=== PATIENT | male | born 1960 | race Caucasian/White ===

== ENCOUNTER 2017-05-05 09:48 | Emergency (ER) | payer MEDICARE, MEDICAID ==
[2017-05-05 10:08] LABS: ABG PH 7.2 (7.35-7.45)
[2017-05-05] MEDS ORDERED: FUROSEMIDE 100 MG SOL ONE (10:10)
[2017-05-05 10:13] VITALS: TEMP 97.1
[2017-05-05] MEDS ORDERED: HYDRALAZINE HYDROCHLORIDE 20 MG/ML SOL IV ONE (10:14)
[2017-05-05] MEDS ORDERED: MORPHINE SULFATE 10 MG/ML SOL IV ONE (10:14)
[2017-05-05] MEDS ORDERED: MORPHINE SULFATE 10 MG/ML SOL ONE (10:15)
[2017-05-05] MEDS ORDERED: HYDRALAZINE HYDROCHLORIDE 20 MG/ML SOL ONE (10:15)
[2017-05-05 10:20] LABS: BASOPHILS % (AUTO) 1 % (0-3); EOSINOPHILS % (AUTO) 2 % (0-9); HEMATOCRIT 49 % (39-53); MONOCYTES % (AUTO) 13.4 % (0-12); NEUTROPHILS % (AUTO) 57.2 % (37-80)
[2017-05-05] MEDS ORDERED: FUROSEMIDE 100 MG SOL IV ONE (10:21)
[2017-05-05 10:22] LABS: MEAN CORPUSCULAR VOLUME 103 fL (80-100)
[2017-05-05] MEDS ORDERED: ETOMIDATE 2 MG/ML SOL IV ONE (10:23)
[2017-05-05] MEDS ORDERED: SUCCINYLCHOLINE CHLORIDE 20 MG/ML SOL IV ONE (10:23)
[2017-05-05] MEDS ORDERED: ROCURONIUM BROMIDE 10 MG/ML SOL IV ONE (10:24)
[2017-05-05 10:31] LABS: CALCIUM 8.7 mg/dl (8.5-10.1); POTASSIUM 4.2 mMol/L (3.5-5.1)
[2017-05-05 10:32] LABS: ALBUMIN 2.8 gm/dl (3.4-5.0)
[2017-05-05 10:37] LABS: ABG PH 7.3 (7.35-7.45)
[2017-05-05 10:43] VITALS: RESP 24
[2017-05-05 11:50] VITALS: BP 110/46; PULSE 88; O2SAT 89
== END 2017-05-05 11:44 | disposition short-term general hospital (02) | DRG 291 ==
LOC: ED 09:48
DX: I50.9 Heart failure, unspecified (principal); J96.90 Respiratory failure, unspecified, unspecified whether with hypoxia or hypercapnia; E87.2 Acidosis; J44.9 Chronic obstructive pulmonary disease, unspecified
CPT/HCPCS: 36600; 71010; 80053; 82803; 83880; 84484; 85025; 93005; 99291; J0330; J0360; J1940; J2270

== ENCOUNTER 2017-06-11 02:30 | Inpatient (IN) | payer MEDICARE ==
[2017-06-11] MEDS ORDERED: ALBUTEROL/IPRATROPIUM 1 VIAL SOL INH ONE (02:31)
[2017-06-11] MEDS: SODIUM CHLORIDE 0.9% FLUSH 10 ML SOL IV PRN ×3 (02:45→19:15)
[2017-06-11 02:56] LABS: BASOPHILS % (AUTO) 1 % (0-3); EOSINOPHILS % (AUTO) 2 % (0-9); HEMATOCRIT 43 % (33-40); MEAN CORPUSCULAR VOLUME 97 fL (74-89); MONOCYTES % (AUTO) 10.5 % (0-12)
[2017-06-11] MEDS ORDERED: ALBUTEROL/IPRATROPIUM 1 VIAL SOL ONE (03:12)
[2017-06-11 03:23] LABS: ALBUMIN 2.7 gm/dl (3.4-5.0); ALT 25 IU/L (14-63); CALCIUM 8.6 mg/dl (8.5-10.1); GLOM FILT RATE 78 mL/min (>60); POTASSIUM 3.1 mMol/L (3.5-5.1); SODIUM 138 mMol/L (136-145)
[2017-06-11] MEDS ORDERED: ALBUTEROL/IPRATROPIUM 1 VIAL SOL INH PRN (04:44)
[2017-06-11] MEDS ORDERED: CEFTRIAXONE 1 GM PDS ONE (04:55)
[2017-06-11] MEDS: CEFTRIAXONE 1 GM PDS 1 GM in SODIUM CHLORIDE 0.9% 100 ML 100 ML IV SCH (05:00)
[2017-06-11] MEDS ORDERED: AZITHROMYCIN 500 MG PDS 500 MG in SODIUM CHLORIDE 0.9% 500 ML 500 ML IV SCH ×2 (07:00→09:00)
[2017-06-11] MEDS ORDERED: SODIUM CHLORIDE 0.9% 500 ML 500 ML IV ONE (08:32)
[2017-06-11] MEDS ORDERED: AZITHROMYCIN 500 MG PDS IV ONE (08:32)
[2017-06-11] MEDS ORDERED: CEFTRIAXONE 1 GM PDS 1 GM in SODIUM CHLORIDE 0.9% 100 ML 100 ML IV SCH (09:00)
[2017-06-11] MEDS ORDERED: POTASSIUM CHLORIDE 10 MEQ TER PO SCH (09:00)
[2017-06-11] MEDS ORDERED: OMEPRAZOLE 20 MG CAPSULE PO SCH (09:00)
[2017-06-11] MEDS: NOVOLOG FLEXPEN SC SCH ×4 (09:04→20:35)
[2017-06-11] MEDS: ENOXAPARIN 40 MG SOL SC SCH (09:08)
[2017-06-11] MEDS: SERTRALINE HYDROCHLORIDE 50 MG TAB PO SCH (09:09)
[2017-06-11] MEDS: POTASSIUM CHLORIDE 10 MEQ TER PO SCH (09:09)
[2017-06-11] MEDS: METFORMIN HYDROCHLORIDE 500 MG TAB PO SCH ×2 (09:09→20:34)
[2017-06-11] MEDS: ASPIRIN EC 81 MG PO SCH (09:09)
[2017-06-11] MEDS: PANTOPRAZOLE SODIUM 40 MG ECT PO SCH (09:09)
[2017-06-11] MEDS: FUROSEMIDE 100 MG SOL IV SCH ×2 (09:10→15:46)
[2017-06-11] MEDS ORDERED: ACETAMINOPHEN 325 MG PO PRN (14:01)
[2017-06-11 15:26] LABS: APPEARANCE,URINE Clear; BILIRUBIN,URINE NEGATIVE (NEGATIVE); COLOR,URINE Yellow; GLUCOSE, URINE (UA) NEGATIVE (NEGATIVE); KETONES,URINE NEGATIVE (NEGATIVE); LEUKOCYTE ESTERASE ,URINE NEGATIVE (NEGATIVE); NITRATE,URINE NEGATIVE (NEGATIVE); OCCULT BLOOD,URINE NEGATIVE (NEG-TRACE); PH,URINE 5.5; UROBILINOGEN,URINE 0.2 (0.2-1.0 EU)
[2017-06-11 15:32] LABS: RBC,URINE NEG (0-3AV/HPF); WBC,URINE NEG (0-5AV/HPF)
[2017-06-11] MEDS ORDERED: ACETAMINOPHEN 500 MG 500 MG TAB ONE (19:47)
[2017-06-11] MEDS: SODIUM CHLORIDE 0.9% FLUSH 10 ML SOL IV SCH ×3 (19:49→19:59)
[2017-06-11] MEDS: ACETAMINOPHEN 500 MG 500 MG TAB PO PRN (20:35)
[2017-06-12] MEDS: ACETAMINOPHEN 500 MG 500 MG TAB PO PRN (03:14)
[2017-06-12] MEDS ORDERED: CEFTRIAXONE 1 GM PDS ONE (05:39)
[2017-06-12] MEDS ORDERED: SODIUM CHLORIDE 0.9% 100 ML 100 ML IV ONE (05:40)
[2017-06-12] MEDS: CEFTRIAXONE 1 GM PDS 1 GM in SODIUM CHLORIDE 0.9% 100 ML 100 ML IV SCH (05:45)
[2017-06-12] MEDS: SODIUM CHLORIDE 0.9% FLUSH 10 ML SOL IV SCH ×2 (05:45→12:45)
[2017-06-12] MEDS: NOVOLOG FLEXPEN SC SCH ×2 (06:49→14:43)
[2017-06-12 08:56] LABS: ABG PH 7.26 (7.35-7.45)
[2017-06-12] MEDS ORDERED: AZITHROMYCIN 250 MG TAB PO SCH (09:00)
[2017-06-12] MEDS ORDERED: FUROSEMIDE 40 MG TAB PO SCH (09:00)
[2017-06-12] MEDS ORDERED: [UNRECOGNIZED DRUG - OTHER] PO SCH (09:00)
[2017-06-12 10:52] LABS: ABG PH 7.3 (7.35-7.45)
[2017-06-12 11:17] VITALS: RESP 20
[2017-06-12] MEDS: POTASSIUM CHLORIDE 10 MEQ TER PO SCH (11:56)
[2017-06-12] MEDS: ASPIRIN EC 81 MG PO SCH (11:56)
[2017-06-12] MEDS: FUROSEMIDE 80 MG TAB PO SCH ×2 (11:57→14:43)
[2017-06-12] MEDS: PANTOPRAZOLE SODIUM 40 MG ECT PO SCH (11:57)
[2017-06-12] MEDS: METFORMIN HYDROCHLORIDE 500 MG TAB PO SCH (11:57)
[2017-06-12] MEDS: SERTRALINE HYDROCHLORIDE 50 MG TAB PO SCH (11:58)
[2017-06-12] MEDS ORDERED: SUCCINYLCHOLINE CHLORIDE 20 MG/ML SOL IV ONE (12:36)
[2017-06-12] MEDS ORDERED: ETOMIDATE 2 MG/ML SOL IV ONE (12:36)
[2017-06-12] MEDS ORDERED: MIDAZOLAM 2 MG/2 ML SOL ONE (12:37)
[2017-06-12] MEDS ORDERED: PROPOFOL 10 MG/ML EMU IV ONE (12:38)
[2017-06-12] MEDS ORDERED: ROCURONIUM BROMIDE 10 MG/ML SOL IV ONE (12:43)
[2017-06-12 13:45] VITALS: TEMP 98
[2017-06-12 14:14] VITALS: BP 123/34; PULSE 55; O2SAT 96
[2017-06-12] MEDS: ALBUTEROL/IPRATROPIUM 1 VIAL SOL INH SCH ×2 (14:42→14:43)
[2017-06-12] MEDS: ENOXAPARIN 40 MG SOL SC SCH (14:43)
== END 2017-06-12 13:20 | disposition short-term general hospital (02) | DRG 193 ==
LOC: ED 02:30 → ACUTE CARE 04:39 → MERGE 04:39
PROVIDERS: ADMIT Family Medicine; ATTEND Family Medicine
PROC: 5A09357 Assistance with Respiratory Ventilation, Less than 24 Consecutive Hours, Continuous Positive Airway Pressure (ICD-10-PCS; principal; 2017-06-12)
DX: J18.1 Lobar pneumonia, unspecified organism (principal); I50.9 Heart failure, unspecified; I50.33 Acute on chronic diastolic (congestive) heart failure; Z99.81 Dependence on supplemental oxygen; E87.2 Acidosis; E11.9 Type 2 diabetes mellitus without complications; Z79.84 Long term (current) use of oral hypoglycemic drugs
CPT/HCPCS: 36415; 36600; 71010; 71275; 80053; 81001; 82803; 82962; 83880; 84484; 85025; 85378; 87040; 93005; 94150; 94660; 94760; 99223; 99285; J0330; J0456; J0696; J1650; J1940; J2250; J7620; Q9967; A6232; J1815; J2704

== ENCOUNTER 2018-01-05 08:57 | Emergency (ER) | payer MEDICARE, MEDICAID ==
[2018-01-05] MEDS ORDERED: ASPIRIN 325 MG TAB PO ONE (09:00)
[2018-01-05] MEDS ORDERED: SODIUM CHLORIDE 0.9% FLUSH 10 ML SOL IV PRN (09:05)
[2018-01-05] MEDS ORDERED: NITROGLYCERIN 0.4 MG TAB SL PRN (09:05)
[2018-01-05] MEDS ORDERED: SODIUM CHLORIDE 0.9% 1000ML 1,000 ML IV SCH (09:15)
[2018-01-05 09:17] LABS: ABG PH 7.3 (7.35-7.45)
[2018-01-05 09:28] LABS: BASOPHILS % (AUTO) 1 % (0-3); EOSINOPHILS % (AUTO) 1 % (0-9); HEMATOCRIT 45 % (39-53); HEMOGLOBIN 14.3 gm/dl (13.5-17.7); LYMPHOCYTES % (AUTO) 14.4 % (10-50); MEAN CORPUSCULAR HEMOGLOBIN 31.7 pg (27.0-32.0); MEAN CORPUSCULAR HGB CONC 31.6 gm/dl (32.0-36.0); MONOCYTES % (AUTO) 11.6 % (0-12); NEUTROPHILS % (AUTO) 72.7 % (37-80)
[2018-01-05 09:29] LABS: MEAN CORPUSCULAR VOLUME 100 fL (80-100)
[2018-01-05] MEDS ORDERED: FUROSEMIDE 40 MG SOL IV ONE (09:32)
[2018-01-05] MEDS ORDERED: FUROSEMIDE 40 MG SOL ONE (09:33)
[2018-01-05 09:37] LABS: INR 1.03 (0.86-1.12)
[2018-01-05 09:46] LABS: ALBUMIN 2.6 gm/dl (3.4-5.0); ALKALINE PHOSPHATASE 72 IU/L (46-116); ALT 22 IU/L (14-63); AST 16 IU/L (15-37); BILIRUBIN,TOTAL 0.8 mg/dl (0.2-1.0); BLOOD UREA NITROGEN 14 mg/dl (7-18); CALCIUM 7.9 mg/dl (8.5-10.1); CARBON DIOXIDE 40.8 mEq/L (21-32); CHLORIDE 96 mMol/L (98-107); CREATINE KINASE 46 U/L (39-308); CREATININE 1.14 mg/dl (0.80-1.30); GLOM FILT RATE 67 mL/min (>60); GLUCOSE 277 mg/dl (74-106); POTASSIUM 3.9 mMol/L (3.5-5.1); SODIUM 139 mMol/L (136-145); TOTAL PROTEIN 7.9 gm/dl (6.4-8.2); TROP I < 0.017 ng/ml (0.000-0.056)
[2018-01-05 09:47] LABS: APPEARANCE,URINE Clear; BILIRUBIN,URINE NEGATIVE (NEGATIVE); COLOR,URINE Yellow; GLUCOSE, URINE (UA) NEGATIVE (NEGATIVE); KETONES,URINE NEGATIVE (NEGATIVE); LEUKOCYTE ESTERASE ,URINE NEGATIVE (NEGATIVE); NITRATE,URINE NEGATIVE (NEGATIVE); OCCULT BLOOD,URINE NEGATIVE (NEG-TRACE)
[2018-01-05 10:01] LABS: BACTERIA TRACE (< 1+); CRYSTALS NEGATIVE (0-3 AVE/HPF); EPITHELIAL CELLS 0-2 (SQUAMOUS); RBC,URINE 0-1 (0-3AV/HPF); WBC,URINE 0-1 (0-5AV/HPF)
[2018-01-05] MEDS ORDERED: ALBUTEROL/IPRATROPIUM 1 VIAL SOL INH ONE (10:04)
[2018-01-05 10:17] LABS: ABG PH 7.33 (7.35-7.45)
[2018-01-05] MEDS ORDERED: ALBUTEROL/IPRATROPIUM 1 VIAL SOL ONE (10:17)
[2018-01-05 10:22] VITALS: BP 143/74; PULSE 66; RESP 23; TEMP 98.3; O2SAT 89
[2018-01-05] MEDS ORDERED: HEPARIN SODIUM 5000 U/ML SOL IV ONE (10:52)
[2018-01-05] MEDS ORDERED: HEPARIN SODIUM 5000 U/ML SOL ONE (10:52)
== END 2018-01-05 10:56 | disposition short-term general hospital (02) | DRG 204 ==
LOC: ED 08:57
DX: R06.00 Dyspnea, unspecified (principal); E11.8 Type 2 diabetes mellitus with unspecified complications; E87.2 Acidosis; J44.1 Chronic obstructive pulmonary disease with (acute) exacerbation; I50.9 Heart failure, unspecified; J98.4 Other disorders of lung; R06.02 Shortness of breath
CPT/HCPCS: 36415; 36600; 71045; 74018; 80053; 81001; 82550; 82803; 83880; 84484; 85025; 85378; 85610; 85730; 93005; 96365; 96374; 96375; 99291; 99292; J1644; J1940

== ENCOUNTER 2018-01-21 21:56 | Emergency (ER) | payer MEDICARE, MEDICAID ==
[2018-01-21 23:31] LABS: BASOPHILS % (AUTO) 1 % (0-3); EOSINOPHILS % (AUTO) 2 % (0-9); HEMATOCRIT 47 % (39-53); HEMOGLOBIN 15.1 gm/dl (13.5-17.7); LYMPHOCYTES % (AUTO) 25.9 % (10-50); MEAN CORPUSCULAR HEMOGLOBIN 31.3 pg (27.0-32.0); MEAN CORPUSCULAR HGB CONC 32.5 gm/dl (32.0-36.0); MEAN CORPUSCULAR VOLUME 96 fL (80-100); MONOCYTES % (AUTO) 12.5 % (0-12); NEUTROPHILS % (AUTO) 58.6 % (37-80)
[2018-01-21 23:33] LABS: APPEARANCE,URINE Clear; BILIRUBIN,URINE NEGATIVE (NEGATIVE); COLOR,URINE Yellow; GLUCOSE, URINE (UA) NEGATIVE (NEGATIVE); KETONES,URINE NEGATIVE (NEGATIVE); LEUKOCYTE ESTERASE ,URINE NEGATIVE (NEGATIVE); NITRATE,URINE NEGATIVE (NEGATIVE); OCCULT BLOOD,URINE 2+ (NEG-TRACE); UROBILINOGEN,URINE 0.2 (0.2-1.0 EU)
[2018-01-21 23:39] LABS: CALCIUM 8.7 mg/dl (8.5-10.1); CARBON DIOXIDE 40.6 mEq/L (21-32); CREATININE 1.16 mg/dl (0.80-1.30); POTASSIUM 3.9 mMol/L (3.5-5.1)
[2018-01-21 23:56] LABS: BACTERIA NEGATIVE (< 1+); CRYSTALS NEGATIVE (0-3 AVE/HPF); EPITHELIAL CELLS 0-1 (SQUAMOUS); RBC,URINE 20-25 (0-3AV/HPF); WBC,URINE NEG (0-5AV/HPF)
[2018-01-21] MEDS ORDERED: FUROSEMIDE 40 MG SOL IV ONE (23:56)
[2018-01-21] MEDS ORDERED: FUROSEMIDE 40 MG SOL ONE (23:59)
[2018-01-22 00:28] VITALS: TEMP 97.6
[2018-01-22 01:44] VITALS: BP 130/71; PULSE 62; RESP 20; O2SAT 94
== END 2018-01-22 02:05 | disposition home health service (06) | DRG 696 ==
LOC: ED 21:56
DX: R33.9 Retention of urine, unspecified (principal)
CPT/HCPCS: 80048; 81001; 85025; 96374; 99283; 99285; J1940

== ENCOUNTER 2018-03-01 09:52 | Emergency (ER) | payer MEDICARE, MEDICAID ==
[2018-03-01 10:05] LABS: ABG PH 7.38 (7.35-7.45)
[2018-03-01 10:07] LABS: HEMATOCRIT 50 % (39-53); HEMOGLOBIN 15.1 gm/dl (13.5-17.7); MEAN CORPUSCULAR HEMOGLOBIN 28.9 pg (27.0-32.0); MEAN CORPUSCULAR HGB CONC 30.4 gm/dl (32.0-36.0); MEAN CORPUSCULAR VOLUME 95 fL (80-100)
[2018-03-01] MEDS ORDERED: HYDRALAZINE HYDROCHLORIDE 20 MG/ML SOL IV PRN (10:10)
[2018-03-01] MEDS ORDERED: MORPHINE SULFATE 10 MG/ML SOL IV ONE (10:10)
[2018-03-01] MEDS ORDERED: FUROSEMIDE 100 MG SOL IV ONE (10:10)
[2018-03-01] MEDS ORDERED: FUROSEMIDE 40 MG SOL ONE (10:14)
[2018-03-01] MEDS ORDERED: MORPHINE SULFATE 10 MG/ML SOL ONE (10:14)
[2018-03-01] MEDS ORDERED: HYDRALAZINE HYDROCHLORIDE 20 MG/ML SOL ONE (10:14)
[2018-03-01 10:25] LABS: BLOOD UREA NITROGEN 12 mg/dl (7-18); CALCIUM 8.5 mg/dl (8.5-10.1); CHLORIDE 99 mMol/L (98-107); CREATININE 1.01 mg/dl (0.80-1.30); GLOM FILT RATE 77 mL/min (>60); GLUCOSE 153 mg/dl (74-106); POTASSIUM 3.7 mMol/L (3.5-5.1); SODIUM 137 mMol/L (136-145); TROP I < 0.017 ng/ml (0.000-0.056)
[2018-03-01] MEDS ORDERED: METOLAZONE 2.5 MG TABLET ONE (10:26)
[2018-03-01 10:28] VITALS: TEMP 99
[2018-03-01 11:02] LABS: BAND NEUTROPHILS % (MANUAL) 2 %; LYMPHOCYTES % (MANUAL) 21 % (10-50); MONOCYTES % (MANUAL) 11 % (0-12); NEUTROPHILS % (MANUAL) 60 % (37-80)
[2018-03-01 11:03] LABS: BASOPHILS % (MANUAL) 0 % (0-3); EOSINOPHILS % (MANUAL) 6 % (0-9); NORMAL RBCS PRESENT
[2018-03-01 13:02] VITALS: O2SAT 96
[2018-03-01 13:03] VITALS: BP 169/72; PULSE 76; RESP 24
[2018-03-02] MEDS ORDERED: METOLAZONE 2.5 MG TAB PO SCH (07:00)
== END 2018-03-01 11:50 | disposition short-term general hospital (02) | DRG 292 ==
LOC: ED 09:52
DX: I50.9 Heart failure, unspecified (principal); J81.1 Chronic pulmonary edema
CPT/HCPCS: 36600; 71045; 80048; 82803; 83880; 84484; 85007; 85027; 96374; 96375; 99291; J0360; J1940; J2270; A9270-GY

== ENCOUNTER 2018-03-15 15:30 | Emergency (ER) | payer MEDICARE, MEDICAID ==
[2018-03-15 16:01] LABS: BASOPHILS % (AUTO) 1 % (0-3); EOSINOPHILS % (AUTO) 2 % (0-9); HEMATOCRIT 51 % (39-53); HEMOGLOBIN 15.5 gm/dl (13.5-17.7); LYMPHOCYTES % (AUTO) 22.48 % (10-50); MEAN CORPUSCULAR HEMOGLOBIN 28.8 pg (27.0-32.0); MEAN CORPUSCULAR HGB CONC 30.4 gm/dl (32.0-36.0); MEAN CORPUSCULAR VOLUME 95 fL (80-100); MONOCYTES % (AUTO) 10.6 % (0-12); NEUTROPHILS % (AUTO) 63.5 % (37-80)
[2018-03-15 16:15] LABS: LACTIC ACID 1.7 mMol/L (0.0-2.0)
[2018-03-15 16:17] LABS: ALBUMIN 2.8 gm/dl (3.4-5.0); ALKALINE PHOSPHATASE 68 IU/L (46-116); ALT 25 IU/L (14-63); AST 18 IU/L (15-37); BILIRUBIN,TOTAL 0.3 mg/dl (0.2-1.0); BLOOD UREA NITROGEN 13 mg/dl (7-18); CALCIUM 8.4 mg/dl (8.5-10.1); CARBON DIOXIDE 38.4 mEq/L (21-32); CREATININE 1.14 mg/dl (0.80-1.30); GLOM FILT RATE 67 mL/min (>60); GLUCOSE 138 mg/dl (74-106); POTASSIUM 3.5 mMol/L (3.5-5.1); SODIUM 139 mMol/L (136-145); TOTAL PROTEIN 7.7 gm/dl (6.4-8.2); TROP I < 0.017 ng/ml (0.000-0.056)
[2018-03-15 16:18] LABS: CHLORIDE 99 mMol/L (98-107)
[2018-03-15 16:32] LABS: ABG PH 7.34 (7.35-7.45)
[2018-03-15] MEDS ORDERED: FUROSEMIDE 40 MG SOL IV ONE (18:37)
[2018-03-15] MEDS ORDERED: FUROSEMIDE 40 MG SOL ONE (18:38)
[2018-03-15] MEDS: SODIUM CHLORIDE 0.9% FLUSH 10 ML SOL IV PRN ×2 (18:38→18:46)
[2018-03-15] MEDS ORDERED: SOLUMEDROL 125 MG/2 ML 125 MG/2 ML PDS IV ONE (18:38)
[2018-03-15] MEDS ORDERED: SOLUMEDROL 125 MG/2 ML 125 MG/2 ML PDS ONE (18:39)
[2018-03-15 18:51] LABS: ABG PH 7.33 (7.35-7.45)
[2018-03-15 19:28] VITALS: TEMP 98.3
[2018-03-16 00:09] VITALS: BP 166/91; PULSE 68; RESP 28; O2SAT 89
== END 2018-03-15 19:59 | disposition short-term general hospital (02) | DRG 293 ==
LOC: ED 15:30
DX: I50.33 Acute on chronic diastolic (congestive) heart failure (principal)
CPT/HCPCS: 36415; 36600; 71045; 80053; 82803; 83880; 84484; 85025; 93005; 96374; 96375; 99291; J1940; J2930

== ENCOUNTER 2018-05-05 15:40 | Emergency (ER) | payer MEDICARE, MEDICAID ==
[2018-05-05] MEDS ORDERED: FUROSEMIDE 100 MG SOL IV ONE ×2 (15:46→15:48)
[2018-05-05] MEDS ORDERED: MORPHINE SULFATE 10 MG/ML SOL IV ONE (15:47)
[2018-05-05] MEDS ORDERED: SOLUMEDROL 125 MG/2 ML 125 MG/2 ML PDS IV ONE (15:47)
[2018-05-05] MEDS ORDERED: SOLUMEDROL 125 MG/2 ML 125 MG/2 ML PDS ONE (15:52)
[2018-05-05] MEDS ORDERED: FUROSEMIDE 100 MG SOL ONE (15:52)
[2018-05-05] MEDS ORDERED: MORPHINE SULFATE 10 MG/ML SOL ONE (15:52)
[2018-05-05] MEDS ORDERED: METOLAZONE 2.5 MG TABLET ONE (15:58)
[2018-05-05 16:08] LABS: BASOPHILS % (AUTO) 1 % (0-3); EOSINOPHILS % (AUTO) 1 % (0-9); HEMATOCRIT 49 % (39-53); HEMOGLOBIN 14.9 gm/dl (13.5-17.7); LYMPHOCYTES % (AUTO) 16.8 % (10-50); MEAN CORPUSCULAR HEMOGLOBIN 28.4 pg (27.0-32.0); MEAN CORPUSCULAR HGB CONC 30.1 gm/dl (32.0-36.0); MEAN CORPUSCULAR VOLUME 94 fL (80-100); MONOCYTES % (AUTO) 10.9 % (0-12); NEUTROPHILS % (AUTO) 69.8 % (37-80)
[2018-05-05 16:17] VITALS: TEMP 98.9
[2018-05-05 16:18] LABS: ALBUMIN 2.9 gm/dl (3.4-5.0); ALKALINE PHOSPHATASE 67 IU/L (46-116); ALT 32 IU/L (14-63); AST 24 IU/L (15-37); BILIRUBIN,TOTAL 0.4 mg/dl (0.2-1.0); BLOOD UREA NITROGEN 11 mg/dl (7-18); CALCIUM 8.1 mg/dl (8.5-10.1); CHLORIDE 98 mMol/L (98-107); CREATININE 1.07 mg/dl (0.80-1.30); GLUCOSE 183 mg/dl (74-106); SODIUM 138 mMol/L (136-145); TOTAL PROTEIN 8.1 gm/dl (6.4-8.2); TROP I < 0.017 ng/ml (0.000-0.056)
[2018-05-05 16:26] LABS: CARBON DIOXIDE 36.9 mEq/L (21-32); POTASSIUM 4.1 mMol/L (3.5-5.1)
[2018-05-05 16:36] LABS: ABG PH 7.28 (7.35-7.45)
[2018-05-05 18:02] VITALS: BP 155/77; PULSE 67; RESP 27; O2SAT 92
[2018-05-06] MEDS ORDERED: METOLAZONE 2.5 MG TAB PO SCH (07:00)
== END 2018-05-05 17:30 | disposition short-term general hospital (02) | DRG 293 ==
LOC: ED 15:40
DX: I50.33 Acute on chronic diastolic (congestive) heart failure (principal); I50.1 Left ventricular failure, unspecified; R06.00 Dyspnea, unspecified
CPT/HCPCS: 36600; 71045; 80053; 82803; 83880; 84484; 85025; 93005; 96374; 96375; 99291; J1940; J2270; J2930; A9270-GY

== ENCOUNTER 2018-05-20 22:37 | Emergency (ER) | payer MEDICARE, MEDICAID ==
[2018-05-20] MEDS ORDERED: ALBUTEROL/IPRATROPIUM 1 VIAL SOL INH ONE (22:49)
[2018-05-20] MEDS ORDERED: SOLUMEDROL 125 MG/2 ML 125 MG/2 ML PDS IV ONE (22:49)
[2018-05-20] MEDS ORDERED: FUROSEMIDE 100 MG SOL IV ONE (22:49)
[2018-05-20] MEDS ORDERED: ALBUTEROL/IPRATROPIUM 1 VIAL SOL ONE (22:50)
[2018-05-20 22:51] VITALS: TEMP 97
[2018-05-20] MEDS ORDERED: HYDRALAZINE HYDROCHLORIDE 20 MG/ML SOL IV ONE (22:54)
[2018-05-20] MEDS ORDERED: FUROSEMIDE 40 MG SOL ONE (22:54)
[2018-05-20] MEDS ORDERED: SOLUMEDROL 125 MG/2 ML 125 MG/2 ML PDS ONE (22:54)
[2018-05-20] MEDS ORDERED: METOLAZONE 2.5 MG TABLET ONE (22:54)
[2018-05-20] MEDS ORDERED: HYDRALAZINE HYDROCHLORIDE 20 MG/ML SOL ONE (22:57)
[2018-05-20] MEDS: METOLAZONE 2.5 MG TAB PO SCH ×2 (23:00→23:02)
[2018-05-20 23:37] LABS: BASOPHILS % (AUTO) 1 % (0-3); EOSINOPHILS % (AUTO) 2 % (0-9); HEMATOCRIT 53 % (39-53); HEMOGLOBIN 16.1 gm/dl (13.5-17.7); LYMPHOCYTES % (AUTO) 33.8 % (10-50); MEAN CORPUSCULAR HEMOGLOBIN 28.7 pg (27.0-32.0); MEAN CORPUSCULAR HGB CONC 30.1 gm/dl (32.0-36.0); MEAN CORPUSCULAR VOLUME 96 fL (80-100); MONOCYTES % (AUTO) 12.9 % (0-12); NEUTROPHILS % (AUTO) 50.1 % (37-80)
[2018-05-20 23:54] LABS: BLOOD UREA NITROGEN 12 mg/dl (7-18); CALCIUM 8.6 mg/dl (8.5-10.1); CHLORIDE 99 mMol/L (98-107); CREATININE 1.11 mg/dl (0.80-1.30); GLUCOSE 184 mg/dl (74-106); SODIUM 140 mMol/L (136-145); TROP I < 0.017 ng/ml (0.000-0.056)
[2018-05-21 00:01] LABS: POTASSIUM 3.7 mMol/L (3.5-5.1)
[2018-05-21 00:03] LABS: ABG PH 7.4 (7.35-7.45)
[2018-05-21 01:35] VITALS: BP 131/65; PULSE 81; RESP 17; O2SAT 91
== END 2018-05-21 00:24 | disposition short-term general hospital (02) | DRG 293 ==
LOC: ED 22:37
DX: I50.1 Left ventricular failure, unspecified (principal)
CPT/HCPCS: 36415; 36600; 71045; 80048; 82803; 83880; 84484; 85025; 96374; 96375; 99285; 99291; J0360; J1940; J2930; A9270-GY

== ENCOUNTER 2018-05-30 12:10 | Emergency (ER) | payer MEDICARE, MEDICAID ==
[2018-05-30 12:23] VITALS: TEMP 98
[2018-05-30] MEDS ORDERED: FUROSEMIDE 40 MG SOL IV ONE (12:29)
[2018-05-30 12:34] LABS: ABG PH 7.38 (7.35-7.45)
[2018-05-30] MEDS ORDERED: FUROSEMIDE 40 MG SOL ONE ×2 (12:36→13:03)
[2018-05-30 12:41] LABS: BASOPHILS % (AUTO) 2 % (0-3); EOSINOPHILS % (AUTO) 2 % (0-9); HEMATOCRIT 51 % (39-53); HEMOGLOBIN 15.4 gm/dl (13.5-17.7); LYMPHOCYTES % (AUTO) 28.1 % (10-50); MEAN CORPUSCULAR HEMOGLOBIN 28.7 pg (27.0-32.0); MEAN CORPUSCULAR HGB CONC 30.2 gm/dl (32.0-36.0); MEAN CORPUSCULAR VOLUME 95 fL (80-100); MONOCYTES % (AUTO) 11.9 % (0-12); NEUTROPHILS % (AUTO) 55.5 % (37-80)
[2018-05-30 12:45] LABS: LACTIC ACID 1.7 mMol/L (0.0-2.0)
[2018-05-30 13:01] LABS: ALBUMIN 2.7 gm/dl (3.4-5.0); ALKALINE PHOSPHATASE 66 IU/L (46-116); ALT 42 IU/L (14-63); AST 21 IU/L (15-37); BILIRUBIN,TOTAL 0.4 mg/dl (0.2-1.0); BLOOD UREA NITROGEN 10 mg/dl (7-18); CALCIUM 8.3 mg/dl (8.5-10.1); CHLORIDE 100 mMol/L (98-107); CREATININE 1.13 mg/dl (0.80-1.30); GLUCOSE 165 mg/dl (74-106); POTASSIUM 3.6 mMol/L (3.5-5.1); TOTAL PROTEIN 7.4 gm/dl (6.4-8.2); TROP I < 0.017 ng/ml (0.000-0.056)
[2018-05-30 13:06] LABS: CARBON DIOXIDE 33.4 mEq/L (21-32); SODIUM 138 mMol/L (136-145)
[2018-05-30] MEDS ORDERED: SOLUMEDROL 125 MG/2 ML 125 MG/2 ML PDS IV ONE (14:02)
[2018-05-30] MEDS ORDERED: SOLUMEDROL 125 MG/2 ML 125 MG/2 ML PDS ONE (14:44)
[2018-05-30 17:07] VITALS: BP 126/70; PULSE 57; RESP 26; O2SAT 94
== END 2018-05-30 15:30 | disposition short-term general hospital (02) | DRG 192 ==
LOC: ED 12:10
DX: J44.1 Chronic obstructive pulmonary disease with (acute) exacerbation (principal); I50.9 Heart failure, unspecified
CPT/HCPCS: 36415; 36600; 71045; 80053; 82803; 83880; 84484; 85025; 93005; 96374; 96375; 99284; 99285; J1940; J2930

== ENCOUNTER 2018-06-26 13:02 | Emergency (ER) | payer MEDICARE, MEDICAID ==
[2018-06-26 13:20] LABS: HEMATOCRIT 52 % (39-53); HEMOGLOBIN 15.4 gm/dl (13.5-17.7); MEAN CORPUSCULAR HEMOGLOBIN 29.2 pg (27.0-32.0); MEAN CORPUSCULAR HGB CONC 29.6 gm/dl (32.0-36.0)
[2018-06-26] MEDS ORDERED: NITROGLYCERIN 0.4 MG TAB SL ONE (13:23)
[2018-06-26 13:24] LABS: MEAN CORPUSCULAR VOLUME 99 fL (80-100)
[2018-06-26 13:26] LABS: ABG PH 7.36 (7.35-7.45)
[2018-06-26] MEDS ORDERED: ASPIRIN 81 MG CHEWABLE CTB ONE (13:29)
[2018-06-26 13:34] LABS: ALBUMIN 2.8 gm/dl (3.4-5.0); ALKALINE PHOSPHATASE 79 IU/L (46-116); ALT 35 IU/L (14-63); AST 18 IU/L (15-37); BILIRUBIN,TOTAL 0.4 mg/dl (0.2-1.0); BLOOD UREA NITROGEN 16 mg/dl (7-18); CALCIUM 8.5 mg/dl (8.5-10.1); CARBON DIOXIDE 36.8 mEq/L (21-32); CHLORIDE 98 mMol/L (98-107); CREATININE 1.24 mg/dl (0.80-1.30); GLUCOSE 196 mg/dl (74-106); POTASSIUM 4.1 mMol/L (3.5-5.1); SODIUM 138 mMol/L (136-145); TROP I < 0.017 ng/ml (0.000-0.056)
[2018-06-26 13:36] LABS: BAND NEUTROPHILS % (MANUAL) 5 %; LYMPHOCYTES % (MANUAL) 21 % (10-50); NEUTROPHILS % (MANUAL) 56 % (37-80)
[2018-06-26 13:37] LABS: BASOPHILS % (MANUAL) 3 % (0-3); EOSINOPHILS % (MANUAL) 2 % (0-9); MONOCYTES % (MANUAL) 13 % (0-12); NORMAL RBCS PRESENT
[2018-06-26] MEDS ORDERED: ASPIRIN 81 MG CHEWABLE CTB PO STA (13:40)
[2018-06-26] MEDS ORDERED: SODIUM CHLORIDE 0.9% FLUSH 10 ML SOL IV PRN (13:40)
[2018-06-26] MEDS ORDERED: NITROGLYCERIN 0.4 MG TAB SL PRN (13:40)
[2018-06-26 13:49] LABS: LACTIC ACID 1.3 mMol/L (0.0-2.0)
[2018-06-26] MEDS ORDERED: LORAZEPAM 2 MG/ML SOL IV ONE (14:51)
[2018-06-26] MEDS ORDERED: SOLUMEDROL 125 MG/2 ML 125 MG/2 ML PDS IV ONE (14:51)
[2018-06-26] MEDS ORDERED: SOLUMEDROL 125 MG/2 ML 125 MG/2 ML PDS ONE ×2 (14:56→15:02)
[2018-06-26] MEDS ORDERED: LORAZEPAM 2 MG/ML SOL ONE (14:57)
[2018-06-26 15:34] VITALS: BP 142/57; PULSE 64; RESP 24; O2SAT 88
[2018-06-26 19:01] VITALS: TEMP 97.1
== END 2018-06-26 17:03 | disposition home or self-care (01) | DRG 204 ==
LOC: ED 13:02
DX: R06.02 Shortness of breath (principal); J44.9 Chronic obstructive pulmonary disease, unspecified; E11.9 Type 2 diabetes mellitus without complications
CPT/HCPCS: 36600; 71045; 80053; 82803; 83880; 84484; 85007; 85027; 93005; 96374; 96375; 99284; 99285; J2060; J2930; A9270-GY

== ENCOUNTER 2018-07-22 20:49 | Emergency (ER) | payer MEDICARE, MEDICAID ==
[2018-07-22] MEDS ORDERED: ALBUTEROL NEB SOL 2.5MG/3ML 1 VIAL SOL NEB ONE (21:01)
[2018-07-22] MEDS ORDERED: ALBUTEROL/IPRATROPIUM 1 VIAL SOL INH ONE ×2 (21:02→21:45)
[2018-07-22] MEDS ORDERED: ALBUTEROL/IPRATROPIUM 1 VIAL SOL ONE ×2 (21:05→21:47)
[2018-07-22] MEDS ORDERED: PREDNISONE 20 MG TAB PO ONE (21:10)
[2018-07-22] MEDS ORDERED: PREDNISONE 20 MG TAB ONE (21:14)
[2018-07-22] MEDS: SODIUM CHLORIDE 0.9% FLUSH 10 ML SOL IV PRN ×2 (21:20→21:54)
[2018-07-22 21:23] LABS: ABG PH 7.33 (7.35-7.45)
[2018-07-22 21:26] LABS: HEMATOCRIT 51 % (39-53); HEMOGLOBIN 15.5 gm/dl (13.5-17.7); MEAN CORPUSCULAR HEMOGLOBIN 29.7 pg (27.0-32.0); MEAN CORPUSCULAR HGB CONC 30.5 gm/dl (32.0-36.0); MEAN CORPUSCULAR VOLUME 97 fL (80-100)
[2018-07-22 21:30] VITALS: TEMP 98.8
[2018-07-22 21:43] LABS: ALBUMIN 2.8 gm/dl (3.4-5.0); BILIRUBIN,TOTAL 0.5 mg/dl (0.2-1.0); CALCIUM 9.3 mg/dl (8.5-10.1); CREATININE 1.25 mg/dl (0.80-1.30); TOTAL PROTEIN 8.2 gm/dl (6.4-8.2)
[2018-07-22] MEDS ORDERED: FUROSEMIDE 40 MG SOL IV ONE (21:47)
[2018-07-22 21:48] LABS: POTASSIUM 4.2 mMol/L (3.5-5.1)
[2018-07-22] MEDS ORDERED: FUROSEMIDE 40 MG SOL ONE (21:48)
[2018-07-22 21:51] LABS: BAND NEUTROPHILS % (MANUAL) 2 %; EOSINOPHILS % (MANUAL) 2 % (0-9); LYMPHOCYTES % (MANUAL) 17 % (10-50); MONOCYTES % (MANUAL) 12 % (0-12); NEUTROPHILS % (MANUAL) 67 % (37-80)
[2018-07-22 21:52] LABS: BASOPHILS % (MANUAL) 0 % (0-3); METAMYELOCYTES%(MANUAL) 0; MYELOCYTES%(MANUAL) 0; POIKILOCYTOSIS SLIGHT AMT; PROMYELOCYTES % 0; STOMATOCYTES PRESENT
[2018-07-22 23:35] VITALS: BP 149/65; PULSE 63; RESP 16; O2SAT 90
== END 2018-07-22 23:15 | disposition short-term general hospital (02) | DRG 192 ==
LOC: ED 20:49
DX: J44.1 Chronic obstructive pulmonary disease with (acute) exacerbation (principal); I10 Essential (primary) hypertension; I50.9 Heart failure, unspecified; E11.9 Type 2 diabetes mellitus without complications
CPT/HCPCS: 36600; 71045; 80053; 82803; 85007; 85027; 93005; 96374; 99291; J1940; A9270-GY

== ENCOUNTER 2018-10-30 15:47 | Emergency (ER) | payer MEDICARE, MEDICAID ==
[2018-10-30] MEDS ORDERED: NITROGLYCERIN 0.4 MG TAB SL PRN (15:57)
[2018-10-30] MEDS ORDERED: ASPIRIN 81 MG CHEWABLE CTB PO STA (15:57)
[2018-10-30] MEDS ORDERED: ASPIRIN 81 MG CHEWABLE CTB ONE (16:01)
[2018-10-30] MEDS ORDERED: NITROGLYCERIN 0.4 MG TAB SL ONE (16:01)
[2018-10-30 16:02] LABS: HEMATOCRIT 49 % (39-53); HEMOGLOBIN 14.7 gm/dl (13.5-17.7); MEAN CORPUSCULAR HEMOGLOBIN 29.2 pg (27.0-32.0); MEAN CORPUSCULAR HGB CONC 30.2 gm/dl (32.0-36.0); MEAN CORPUSCULAR VOLUME 97 fL (80-100)
[2018-10-30] MEDS: SODIUM CHLORIDE 0.9% FLUSH 10 ML SOL IV PRN ×2 (16:02→16:45)
[2018-10-30] MEDS ORDERED: SOLUMEDROL 125 MG/2 ML 125 MG/2 ML PDS IV ONE (16:06)
[2018-10-30] MEDS ORDERED: FUROSEMIDE 40 MG SOL IV ONE (16:06)
[2018-10-30] MEDS ORDERED: ALBUTEROL/IPRATROPIUM 1 VIAL SOL INH ONE (16:07)
[2018-10-30 16:10] VITALS: TEMP 98.3
[2018-10-30 16:11] LABS: INR 1.02 (0.86-1.12)
[2018-10-30 16:23] LABS: BLOOD UREA NITROGEN 16 mg/dl (7-18); CALCIUM 7.8 mg/dl (8.5-10.1); CHLORIDE 101 mMol/L (98-107); CREATINE KINASE 41 U/L (39-308); CREATININE 1.33 mg/dl (0.80-1.30); GLUCOSE 159 mg/dl (74-106); POTASSIUM 3.9 mMol/L (3.5-5.1); SODIUM 142 mMol/L (136-145); TROP I < 0.017 ng/ml (0.000-0.056)
[2018-10-30] MEDS ORDERED: ALBUTEROL/IPRATROPIUM 1 VIAL SOL ONE (16:23)
[2018-10-30] MEDS ORDERED: SOLUMEDROL 125 MG/2 ML 125 MG/2 ML PDS ONE (16:25)
[2018-10-30] MEDS ORDERED: FUROSEMIDE 40 MG SOL ONE (16:25)
[2018-10-30 16:27] LABS: CARBON DIOXIDE 35.5 mEq/L (21-32)
[2018-10-30 16:39] LABS: ABG PH 7.33 (7.35-7.45)
[2018-10-30 16:50] LABS: ANISOCYTOSIS SLIGHT; BAND NEUTROPHILS % (MANUAL) 0 %; BASOPHILS % (MANUAL) 0 % (0-3); EOSINOPHILS % (MANUAL) 0 % (0-9); LYMPHOCYTES % (MANUAL) 23 % (10-50); MONOCYTES % (MANUAL) 9 % (0-12); NEUTROPHILS % (MANUAL) 68 % (37-80)
[2018-10-30 19:37] VITALS: BP 114/60; PULSE 78; RESP 24; O2SAT 90
== END 2018-10-30 18:33 | disposition short-term general hospital (02) | DRG 191 ==
LOC: ED 15:47
DX: J44.1 Chronic obstructive pulmonary disease with (acute) exacerbation (principal); E87.4 Mixed disorder of acid-base balance; R06.02 Shortness of breath; I50.9 Heart failure, unspecified; E11.9 Type 2 diabetes mellitus without complications
CPT/HCPCS: 36600; 71045; 80048; 82550; 82803; 83880; 84484; 85007; 85027; 85610; 93005; 96374; 96375; 99284; 99285; J1940; J2930; A9270-GY

== ENCOUNTER 2018-11-18 15:02 | Emergency (ER) | payer MEDICARE, MEDICAID ==
[2018-11-18] MEDS ORDERED: ALBUTEROL/IPRATROPIUM 1 VIAL SOL ONE (15:06)
[2018-11-18] MEDS ORDERED: SOLUMEDROL 125 MG/2 ML 125 MG/2 ML PDS ONE (15:13)
[2018-11-18] MEDS ORDERED: ALBUTEROL/IPRATROPIUM 1 VIAL SOL INH ONE (15:13)
[2018-11-18] MEDS ORDERED: ALBUTEROL NEB SOL 2.5MG/3ML 1 VIAL SOL NEB ONE (15:13)
[2018-11-18] MEDS ORDERED: SOLUMEDROL 125 MG/2 ML 125 MG/2 ML PDS IV ONE (15:13)
[2018-11-18 15:15] VITALS: TEMP 99.6
[2018-11-18] MEDS ORDERED: ALBUTEROL NEB SOL 2.5MG/3ML 1 VIAL SOL ONE (15:15)
[2018-11-18 15:21] LABS: CALCIUM 8.3 mg/dl (8.5-10.1); CARBON DIOXIDE 39.6 mEq/L (21-32); CREATININE 1.32 mg/dl (0.80-1.30); POTASSIUM 3.2 mMol/L (3.5-5.1)
[2018-11-18 15:30] LABS: ABG PH 7.32 (7.35-7.45)
[2018-11-18] MEDS ORDERED: FUROSEMIDE 40 MG SOL IV ONE (15:41)
[2018-11-18] MEDS ORDERED: FUROSEMIDE 40 MG SOL ONE (15:43)
[2018-11-18 15:50] LABS: HEMATOCRIT 48 % (39-53); MEAN CORPUSCULAR HEMOGLOBIN 29.1 pg (27.0-32.0); MEAN CORPUSCULAR HGB CONC 31.1 gm/dl (32.0-36.0); MEAN CORPUSCULAR VOLUME 93 fL (80-100)
[2018-11-18 16:08] VITALS: BP 116/71; PULSE 70; RESP 22; O2SAT 100
[2018-11-18 16:31] LABS: ANISOCYTOSIS SLIGHT; BAND NEUTROPHILS % (MANUAL) 0 %; BASOPHILS % (MANUAL) 1 % (0-3); EOSINOPHILS % (MANUAL) 0 % (0-9); LYMPHOCYTES % (MANUAL) 19 % (10-50); MONOCYTES % (MANUAL) 12 % (0-12); NEUTROPHILS % (MANUAL) 68 % (37-80)
== END 2018-11-18 15:50 | disposition short-term general hospital (02) | DRG 204 ==
LOC: ED 15:02
DX: R06.03 Acute respiratory distress (principal); J96.90 Respiratory failure, unspecified, unspecified whether with hypoxia or hypercapnia; J81.1 Chronic pulmonary edema; J44.9 Chronic obstructive pulmonary disease, unspecified; R09.02 Hypoxemia; I50.9 Heart failure, unspecified; R06.02 Shortness of breath; R05 Cough; I10 Essential (primary) hypertension; I27.20 Pulmonary hypertension, unspecified; E11.9 Type 2 diabetes mellitus without complications
CPT/HCPCS: 36600; 71045; 80048; 82803; 85007; 85027; 93005; 96374; 96375; 99291; J1940; J2930; J7613

== ENCOUNTER 2018-12-18 16:58 | Emergency (ER) | payer MEDICARE, MEDICAID ==
[2018-12-18 19:39] VITALS: TEMP 97.2
[2018-12-18 19:43] VITALS: BP 133/67; PULSE 62; RESP 22; O2SAT 92
== END 2018-12-18 18:40 | disposition home or self-care (01) | DRG 153 ==
LOC: ED 16:58
DX: J06.9 Acute upper respiratory infection, unspecified (principal)
CPT/HCPCS: 71045; 99283

== ENCOUNTER 2019-02-02 13:17 | Emergency (ER) | payer MEDICARE, MEDICAID ==
[2019-02-02 14:01] LABS: BASOPHILS % (AUTO) 0 % (0-3); EOSINOPHILS % (AUTO) 1 % (0-9); HEMATOCRIT 52 % (39-53); HEMOGLOBIN 16.6 gm/dl (13.5-17.7); LYMPHOCYTES % (AUTO) 5.1 % (10-50); MEAN CORPUSCULAR HEMOGLOBIN 30.3 pg (27.0-32.0); MEAN CORPUSCULAR HGB CONC 31.6 gm/dl (32.0-36.0); MEAN CORPUSCULAR VOLUME 96 fL (80-100); MONOCYTES % (AUTO) 6.4 % (0-12); NEUTROPHILS % (AUTO) 87.4 % (37-80)
[2019-02-02 14:23] LABS: ALKALINE PHOSPHATASE 68 IU/L (46-116); ALT 33 IU/L (14-63); AST 21 IU/L (15-37); BILIRUBIN,TOTAL 0.5 mg/dl (0.2-1.0); BLOOD UREA NITROGEN 15 mg/dl (7-18); CALCIUM 7.8 mg/dl (8.5-10.1); CHLORIDE 98 mMol/L (98-107); CREATININE 1.17 mg/dl (0.80-1.30); GLUCOSE 170 mg/dl (74-106); POTASSIUM 3.3 mMol/L (3.5-5.1); SODIUM 141 mMol/L (136-145); TOTAL PROTEIN 8.1 gm/dl (6.4-8.2); TROP I < 0.017 ng/ml (0.000-0.056)
[2019-02-02 14:30] LABS: CARBON DIOXIDE 41.5 mEq/L (21-32)
[2019-02-02] MEDS ORDERED: POTASSIUM CHLORIDE 10 MEQ TER PO ONE (15:31)
[2019-02-02] MEDS ORDERED: POTASSIUM CHLORIDE 10 MEQ TER ONE (15:49)
[2019-02-02 16:25] VITALS: TEMP 98.7
[2019-02-02 17:44] VITALS: BP 112/68; PULSE 73; RESP 16; O2SAT 94
== END 2019-02-02 17:38 | disposition home or self-care (01) | DRG 313 ==
LOC: ED 13:17
DX: R07.9 Chest pain, unspecified (principal); R05 Cough
CPT/HCPCS: 36415; 71046; 74019; 80053; 83880; 84484; 85025; 93005; 99284; A9270-GY

== ENCOUNTER 2019-03-11 11:53 | Emergency (ER) | payer MEDICARE, MEDICAID ==
[2019-03-11 12:15] VITALS: PULSE 84; RESP 20; TEMP 97.6
[2019-03-11 12:20] VITALS: BP 132/88; O2SAT 95
== END 2019-03-11 12:32 | disposition home health service (06) | DRG 923 ==
LOC: ED 11:53
DX: Z04.3 Encounter for examination and observation following other accident (principal); W01.0XXA Fall on same level from slipping, tripping and stumbling without subsequent striking against object, initial encounter
CPT/HCPCS: 99282

== ENCOUNTER 2019-04-29 04:17 | Emergency (ER) | payer MEDICARE, MEDICAID | END 2019-04-29 05:07 | disposition home or self-care (01) | LOC: ED 04:17 ==